=== PATIENT | female | born 1945 | race Caucasian/White ===

== ENCOUNTER 2016-08-16 13:09 | Day surgery (SDC) | payer OTHER ==
[~2016-08-16] VITALS: Ht 170.2 cm; Wt 83.9 kg
[~2016-08-16 13:09] MED LIST: AMBIEN5 MG PO; ASCORBIC ACID250 MG PO; Ascorbic Acid,Ester- PO; BENAZEPRIL-HCT1 EAC5 PO; BONIVA150 MG PO; BYETTA10 MCG/0.0 SC; CELEBREX200 MG PO; CENTRUM SILVER1 EAC3 PO; CRANBERRY425 MG PO; Cipro PO; Coumadin,Jantoven PO; ELAVIL25 MG PO; Feosol PO; IRON325 M1 PO; JANUVIA25 M1 PO; LOVENOX30 MG/0.3 SC; LYRICA25 MG PO; LYRICA75 MG PO; Levothroid,Synthroid PO; METFORMIN HCL1000 MG PO; NEURONTIN100 MG PO; NEXIUM40 MG PO; OXYCODONE HCL5 MG PO; OXYCODONE-ACET1 EACH PO; PERCOCET 5/31 TABLET PO; PRAVASTATIN SOD40 MG PO; Percocet 5/325,Endoc PO; Pravachol PO; REQUIP0.25 MG PO; SYNTHROID100 MCG PO; VITAMIN C500 M1 PO; Victoza SC; ZYRTEC10 M3 PO; celeBREX PO
[2016-08-16 14:52] LABS: POINT-OF-CARE METER ID UU14174212
== END 2016-08-16 15:58 | disposition home or self-care (01) ==
LOC: PAIN 13:09 → SDC 13:45 → PAIN 13:45
PROVIDERS: Anesthesiology Pain Medicine
DX: M54.16 Radiculopathy, lumbar region (principal); M47.816 Spondylosis without myelopathy or radiculopathy, lumbar region; M51.36 Other intervertebral disc degeneration, lumbar region; F41.1 Generalized anxiety disorder; E11.9 Type 2 diabetes mellitus without complications; I10 Essential (primary) hypertension; E03.9 Hypothyroidism, unspecified
CPT/HCPCS: 82948; J1100; J2250; J3010

== ENCOUNTER 2016-10-11 07:26 | Day surgery (SDC) | payer OTHER ==
[~2016-10-11] VITALS: Ht 171.4 cm; Wt 83.9 kg
[2016-10-11 07:53] LABS: POINT-OF-CARE METER ID UU14174212
== END 2016-10-11 08:47 | disposition home or self-care (01) ==
LOC: PAIN 07:26
PROVIDERS: Anesthesiology Pain Medicine
PROC: 3E0S33Z Introduction of Anti-inflammatory into Epidural Space, Percutaneous Approach (ICD-10-PCS; principal; 2016-10-11)
DX: M47.26 Other spondylosis with radiculopathy, lumbar region (principal); F41.9 Anxiety disorder, unspecified; M19.90 Unspecified osteoarthritis, unspecified site; E11.9 Type 2 diabetes mellitus without complications; I10 Essential (primary) hypertension; E03.9 Hypothyroidism, unspecified; M79.1 Myalgia; Z96.659 Presence of unspecified artificial knee joint; Z87.891 Personal history of nicotine dependence; Z79.84 Long term (current) use of oral hypoglycemic drugs; Z91.040 Latex allergy status; Z88.5 Allergy status to narcotic agent
CPT/HCPCS: 82948; J1100; J2250; J3010

== ENCOUNTER 2016-11-08 08:38 | Day surgery (SDC) | payer OTHER ==
[~2016-11-08] VITALS: Ht 170.2 cm; Wt 83.9 kg
== END 2016-11-08 09:50 | disposition home or self-care (01) ==
LOC: PAIN 08:38 → SDC 09:15 → PAIN 09:15
PROC: 3E0S33Z Introduction of Anti-inflammatory into Epidural Space, Percutaneous Approach (ICD-10-PCS; principal; 2016-11-08)
DX: M54.16 Radiculopathy, lumbar region (principal); F41.9 Anxiety disorder, unspecified; M51.36 Other intervertebral disc degeneration, lumbar region; M53.3 Sacrococcygeal disorders, not elsewhere classified; M19.90 Unspecified osteoarthritis, unspecified site; E11.9 Type 2 diabetes mellitus without complications; E03.9 Hypothyroidism, unspecified; Z79.84 Long term (current) use of oral hypoglycemic drugs; Z87.891 Personal history of nicotine dependence; Z82.49 Family history of ischemic heart disease and other diseases of the circulatory system; Z88.5 Allergy status to narcotic agent; Z91.040 Latex allergy status
CPT/HCPCS: J1100; J2250; J3010

== ENCOUNTER 2017-03-16 09:49 | Day surgery (SDC) | payer OTHER ==
[~2017-03-16] VITALS: Ht 171.4 cm; Wt 83.9 kg
[~2017-03-16 09:49] MED LIST changes: +CRANBERRY TABL1 EACH PO
[2017-03-16] MEDS ORDERED: CELEBREX200 MG PO (10:06)
[2017-03-16 10:36] LABS: POINT-OF-CARE METER ID UU14174212
== END 2017-03-16 11:26 | disposition home or self-care (01) ==
LOC: PAIN 09:49 → SDC 10:15 → PAIN 11:26
PROVIDERS: Anesthesiology Pain Medicine
PROC: 3E0U3BZ Introduction of Anesthetic Agent into Joints, Percutaneous Approach (ICD-10-PCS; principal; 2017-03-16)
PROC: 3E0U33Z Introduction of Anti-inflammatory into Joints, Percutaneous Approach (ICD-10-PCS; principal; 2017-03-16)
DX: M53.3 Sacrococcygeal disorders, not elsewhere classified (principal); M46.1 Sacroiliitis, not elsewhere classified; M47.26 Other spondylosis with radiculopathy, lumbar region; M51.16 Intervertebral disc disorders with radiculopathy, lumbar region; M79.1 Myalgia; E11.65 Type 2 diabetes mellitus with hyperglycemia; I10 Essential (primary) hypertension; E03.9 Hypothyroidism, unspecified; K21.9 Gastro-esophageal reflux disease without esophagitis; Z79.84 Long term (current) use of oral hypoglycemic drugs; Z79.891 Long term (current) use of opiate analgesic; Z87.891 Personal history of nicotine dependence
CPT/HCPCS: 82948; J1030; J2250; J3010; S0020

== ENCOUNTER 2017-06-13 09:40 | Day surgery (SDC) | payer OTHER ==
[~2017-06-13] VITALS: Ht 170.2 cm; Wt 78.5 kg
[2017-06-13 10:06] LABS: POINT-OF-CARE METER ID UU14174212
== END 2017-06-13 11:25 | disposition home or self-care (01) ==
LOC: PAIN 09:40 → SDC 10:15 → PAIN 11:25
PROVIDERS: Anesthesiology Pain Medicine
DX: M47.26 Other spondylosis with radiculopathy, lumbar region (principal); M51.16 Intervertebral disc disorders with radiculopathy, lumbar region; M53.3 Sacrococcygeal disorders, not elsewhere classified; Z87.891 Personal history of nicotine dependence; E11.9 Type 2 diabetes mellitus without complications; I10 Essential (primary) hypertension; E03.9 Hypothyroidism, unspecified; Z79.84 Long term (current) use of oral hypoglycemic drugs; Z79.891 Long term (current) use of opiate analgesic
CPT/HCPCS: 82948; J1030; J2250; J3010; S0020

== ENCOUNTER 2017-08-31 06:45 | Day surgery (SDC) | payer OTHER ==
[~2017-08-31] VITALS: Ht 172.7 cm; Wt 76.6 kg
[~2017-08-31 06:45] MED LIST changes: +ASCORBIC ACID500 M3 PO; +DAILY MULTIPLE1 EACH PO; +SYNTHROID88 MCG PO; +[UNRECOGNIZED DRUG - OTHER] PO
[2017-08-31 08:02] LABS: CHLORIDE 108 MEQ/L (99-109); CREATININE 1.2 MG/DL (0.6-1.3); GFR ESTIMATE (CALCULATED) 47 mL/min/; GLUCOSE 101 mg/dL (70-99); POTASSIUM 4.2 MEQ/L (3.7-5.4); SODIUM 143 MEQ/L (136-147); UREA NITROGEN (BUN) 17 mg/dL (9-23)
== END 2017-08-31 08:44 | disposition home or self-care (01) ==
LOC: PAIN 06:45 → SDC 07:45 → PAIN 07:45
PROVIDERS: Anesthesiology Pain Medicine
DX: M51.16 Intervertebral disc disorders with radiculopathy, lumbar region (principal); M47.816 Spondylosis without myelopathy or radiculopathy, lumbar region; M79.1 Myalgia; M53.3 Sacrococcygeal disorders, not elsewhere classified; I10 Essential (primary) hypertension; E11.9 Type 2 diabetes mellitus without complications; E03.9 Hypothyroidism, unspecified; K21.9 Gastro-esophageal reflux disease without esophagitis; Z79.84 Long term (current) use of oral hypoglycemic drugs; Z87.891 Personal history of nicotine dependence; Z79.891 Long term (current) use of opiate analgesic
CPT/HCPCS: 80048; 93005; J1100; J2250; J3010

== ENCOUNTER 2017-09-28 07:18 | Day surgery (SDC) | payer OTHER ==
[~2017-09-28] VITALS: Ht 172.7 cm; Wt 76.6 kg
== END 2017-09-28 09:00 | disposition home or self-care (01) ==
LOC: PAIN 07:18 → SDC 07:45 → PAIN 07:45
PROVIDERS: Anesthesiology Pain Medicine
PROC: B01B1ZZ Fluoroscopy of Spinal Cord using Low Osmolar Contrast (ICD-10-PCS; principal; 2017-09-28)
PROC: 3E0S33Z Introduction of Anti-inflammatory into Epidural Space, Percutaneous Approach (ICD-10-PCS; principal; 2017-09-28)
DX: M54.16 Radiculopathy, lumbar region (principal); M51.36 Other intervertebral disc degeneration, lumbar region; M53.3 Sacrococcygeal disorders, not elsewhere classified; M47.816 Spondylosis without myelopathy or radiculopathy, lumbar region; Z87.891 Personal history of nicotine dependence; M19.90 Unspecified osteoarthritis, unspecified site; I10 Essential (primary) hypertension; E11.65 Type 2 diabetes mellitus with hyperglycemia; E03.9 Hypothyroidism, unspecified; Z79.84 Long term (current) use of oral hypoglycemic drugs; Z88.5 Allergy status to narcotic agent; Z91.040 Latex allergy status
CPT/HCPCS: 82948; J2250